=== PATIENT | female | born 1955 | race Caucasian/White ===

== ENCOUNTER 2017-12-30 11:26 | Emergency (ER) | payer MEDICARE, OTHER ==
[~2017-12-30] VITALS: Ht 157.5 cm; Wt 80.3 kg
[~2017-12-30 11:26] MED LIST: ACID CONTROL150 MG PO; ATIVAN1 MG PO; BUSPIRONE HCL15 MG PO; CALCIUM + VITA1 EACH PO; COOL TOP; COUMADIN3 MG PO; DOXEPIN HCL100 MG PO; DULCOLAX10 MG PR; DULOXETINE HCL30 MG PO; FLUTICASONE PRO16 GM NAS; FUROSEMIDE20 MG PO; LASIX20 MG PO; LISINOPRIL20 MG PO; NEURONTIN300 MG PO; NORCO 7.5-3251 EACH PO; OXYBUTYNIN CHLO15 MG PO; PANTOPRAZOLE SO40 MG PO; PROAIR HFA8.5 GM INH; SOOTHE TOP; TRAMADOL HCL50 MG PO; TYLENOL325 MG PO; WARFARIN SODIUM1 MG PO; WARFARIN SODIUM2 MG PO
[2017-12-30] MEDS ORDERED: LORAZEPAM1 MG PO (11:37)
[2017-12-30] MEDS ORDERED: DOXEPIN HCL100 MG PO (11:38)
[2017-12-30] MEDS ORDERED: MELOXICAM15 MG PO (11:38)
[2017-12-30] MEDS ORDERED: DOXEPIN HCL25 MG PO (11:38)
[2017-12-30] MEDS ORDERED: ROPINIROLE HCL0.5 MG PO (11:38)
[2017-12-30] MEDS ORDERED: ASPIRIN325 MG PO (11:39)
== END 2017-12-30 15:18 | disposition home or self-care (01) ==
LOC: ED 11:26
DX: S70.01XA Contusion of right hip, initial encounter (principal); M51.37 Other intervertebral disc degeneration, lumbosacral region; G40.909 Epilepsy, unspecified, not intractable, without status epilepticus; F17.200 Nicotine dependence, unspecified, uncomplicated; Z86.73 Personal history of transient ischemic attack (TIA), and cerebral infarction without residual deficits; Z79.899 Other long term (current) drug therapy; Z79.82 Long term (current) use of aspirin; W18.30XA Fall on same level, unspecified, initial encounter
CPT/HCPCS: 73502; 73700; 99284

== ENCOUNTER 2023-03-23 10:16 | Emergency (ER) | payer MEDICARE, OTHER ==
[~2023-03-23] VITALS: Ht 157.5 cm; Wt 58.6 kg
--- OUTSIDE RECORDS SUMMARY | ~2023-03-23 | XMS | Continuity of Care Document ---
Demographics + + + | Address | [address] | | | [place] [address] | + + + | Preferred Language | Unknown | + + + | Marital Status | | + + + | Christianity Affiliation | Unknown | + + + | Race | White | + + + | Ethnic Group | Unknown | + + + Author + + + | Author | [facility] | + + + | Organization | [facility] | + + + | Address | [address] | | | [place] [address] | + + + | Phone | | + + + Care Team Providers + + + + | Care Energy Efficiency Finance Manager Name | Role | Phone | + + + + Unavailable | Unavailable | + + + + Allergies and Intolerances + + + + + + | date | description | facility | reaction | severity | + + + + + + | (no date) | No Known | [facility] | (no reaction) | (no severity) | | | Allergies | | | | + + + + + + Encounters No information. Functional Status No information. Immunizations No information. Medications No information. Problems No information. Procedures No information. Results/Labs No information. Social History No information. Vital Signs No information."
--- OUTSIDE RECORDS SUMMARY | ~2023-03-23 | XMS | Continuity of Care Document ---
Demographics + + + | Address | [address] | | | [place] [address] | + + + | Preferred Language | Unknown | + + + | Marital Status | | + + + | Druze Affiliation | Unknown | + + + | Race | White | + + + | Ethnic Group | Unknown | + + + Author + + + | Author | [facility] | + + + | Organization | [facility] | + + + | Address | [address] | | | [place] [address] | + + + | Phone | | + + + Care Team Providers + + + + | Care Wire Frame Lampshade Maker Name | Role | Phone | + [...]
[~2023-03-23 10:16] MED LIST changes: +ASPIRIN325 MG PO; +DOXEPIN HCL25 MG PO; +LORAZEPAM1 MG PO; +MELOXICAM15 MG PO; +ROPINIROLE HCL0.5 MG PO
--- OUTSIDE RECORDS SUMMARY | 2023-03-23 10:20 | XMS ---
PreManage Notification: DINA WILSON Security Chief Medical Technologist Events No recent Security Events currently on file CRITERIA MET - Group Notification CARE PROVIDERS ERNESTINA MCNULTY Family Medicine: Adult Medicine Current PHONE: [phone] NIDHI SILVERMAN Physician Grease Maker Head Current PHONE: [phone] Joseph has no Care Guidelines for this patient. Care History Medical/Surgical 01/03/2018 [facility] - CHW went to do a home visit with patient. Once CHW arrived to home patient declined any help and or services at this time. Stated her and her mom talked about things and they would not like any help at this time. - CHW provided contact information if patient changes her mind. Care Recommendation: This patient has had 5 or more Emergency Department visits in the last 12 months. Patient requires education on the scope and purpose of the ED as an acute care provider not a Primary Care Provider and should not be utilized for chronic conditions. If patient returns to ED please contact Community Health WorkerKasie at [phone]. These are guidelines and the provider should exercise clinical judgment when providing care. E.D. VISIT COUNT ([address] [place] [address] [place] TOTAL 3 NOTE: Visits indicate total known visits. ED/UCC VISIT TRACKING (12 MO.) 03/23/2023 10:17 [facility] TYPE: Emergency COMPLAINT: - FALL, FOOT PAIN [facility] COMPLAINT: - wants a refill for sleeping pills DIAGNOSES: - Encounter for issue of repeat prescription - wants a refill for sleeping pills 04/03/2022 07:27 [facility] TYPE: Emergency COMPLAINT: - fall with left arm pain DIAGNOSES: - Contusion of left forearm, initial encounter - Contusion of left wrist, initial encounter - Arm Pain - fall with left arm pain INPATIENT VISIT TRACKING (12 MO.) No inpatient visits to display in this time frame [email or web address]
[2023-03-23 11:39] LABS: BILIRUBIN, URINE POSITIVE (negative); BLOOD/HGB, URINE NEGATIVE (Negative); KETONE, URINE SMALL (Negative); LEUK ESTERASE, URINE NEGATIVE (negative); NITRITE, URINE NEGATIVE (negative); PH, URINE 5.5 (5-7)
[2023-03-23 11:56] LABS: EPITHELIAL CELLS, URINE 0 /lpf (0-1+); RED BLOOD CELLS, URINE 0-1 /hpf (0-5); WHITE BLOOD CELLS, URINE 0-1 /HPF (0-5)
[2023-03-23 11:57] LABS: CRYSTALS, URINE NONE SEEN (0-1+)
[2023-03-23 11:58] LABS: BACTERIA, URINE NONE SEEN /hpf (negative); CASTS, URINE NONE SEEN \\lpf; COLLECTION TYPE, URINE CLEAN CATCH; REFLEX CULTURE, URINE No (No)
[2023-03-23 15:56] LABS: ALBUMIN 3.1 g/dL (3.4-5.0); ALBUMIN/GLOBULIN RATIO 0.94 (1.1-2.4); ANION GAP 10.5 (7-21); BILIRUBIN, TOTAL 0.3 ng/dL (0.2-1.0); BUN/CREATININE RATIO 24.07 (6.0-28.6); CALCIUM 8.6 mg/dL (8.5-10.1); CREATININE, SERUM 0.54 mg/dL (0.55-1.02); POTASSIUM 3.5 mmol/L (3.5-5.1); PROTEIN, TOTAL 6.4 g/dL (6.4-8.2)
[2023-03-23 16:00] LABS: BASOPHILS 0.2 % (0-2); EOSINOPHILS 0.8 % (0-6); HEMATOCRIT 43.2 % (35.0-50.0); HEMOGLOBIN 14.1 g/dL (12.0-18.0); LYMPHOCYTES 16.6 % (24-44); MCH 29.5 (27-36); MCHC 32.6 g/dl (30-36); MCV 90.4 fl (81-99); MONOCYTES 6.6 % (0-12); NEUTROPHILS 75.8 % (39-80); PLATELET COUNT 230 K/uL (140-440); RBC 4.78 M/ul (4.3-5.7); RDW 13.7 (10.5-15.0)
[2023-03-23 18:13] VITALS: BP 124/71
== END 2023-03-23 18:17 | disposition home or self-care (01) ==
LOC: ED 10:16
PROVIDERS: Family Medicine
DX: I69.354 Hemiplegia and hemiparesis following cerebral infarction affecting left non-dominant side (principal); F17.200 Nicotine dependence, unspecified, uncomplicated; Z79.899 Other long term (current) drug therapy; Z79.82 Long term (current) use of aspirin
CPT/HCPCS: 36415; 70450; 70486; 72125; 80053; 81001; 85025; 97161; 99284-25